=== PATIENT | female | born 1960 | race Caucasian/White ===

== ENCOUNTER 2023-04-16 07:20 | Outpatient (OUT) | payer OTHER, SELFPAY ==
--- NOTE | 2023-04-16 07:24 | MM_ITS ---
Patient: JESSE LIMON Exam Date: 04/16/2023 : 1960 Gender:F Ordering : DR KAR KENDALL Admission #: [id number] Family : DR Armando Zhu D.O. Order #: [id number] CLICK HERE TO VIEW EXAM RADIOLOGY REPORT PROCEDURE: MM TOMOSYNTHESIS SCREENING BI COMPARISON: MG MAMM SCREEN 3D LOIDA CAD, 04/07/2022. MG MAMM SCREEN 3D LOIDA CAD, 04/01/2021. MG MAMM SCREEN LOIDA W CAD, 03/02/2020. MG MAMM SCREEN LOIDA W CAD, 12/16/2015. INDICATIONS: Screening Calculator Name NCI Breast Cancer Risk Assessment Tool 5 Year Breast Cancer Risk 1.50% Lifetime Breast Cancer Risk 6.50% Personal Breast Cancer No Personal Ovarian Cancer No Treatments None Family Cancers Aunt-maternal with breast cancer at age ~70; Cousin-paternal with brain cancer at age ~42; Cousin-paternal with stomach cancer at age ~40. LOCATION: [facility] BREAST COMPOSITION: Heterogeneously dense,which may obscure small masses. FINDINGS: DIAGNOSTIC CATEGORY 1--NEGATIVE. RIGHT BREAST: No significant suspicious finding. No significant change has occurred. LEFT BREAST: No significant suspicious finding. No significant change has occurred. RECOMMENDATIONS: ROUTINE MAMMOGRAM AND CLINICAL EVALUATION IN 12 MONTHS. PLEASE NOTE: A NORMAL MAMMOGRAM DOES NOT EXCLUDE THE POSSIBILITY OF BREAST CANCER. A CLINICALLY SUSPICIOUS PALPABLE LUMP SHOULD BE BIOPSIED. Dictated by: Nasim Medrano M.D. on 04/17/2023 at 12:37 Approved by: aNsim Medrano M.D. on 04/17/2023 at 12:43
== END 2023-04-16 07:21 | disposition home or self-care (01) ==
LOC: MAMMO 07:21
PROVIDERS: PCP Internal Medicine; Visit Provider Obstetrics & Gynecology
DX: Z12.31 Encounter for screening mammogram for malignant neoplasm of breast (principal); Z80.3 Family history of malignant neoplasm of breast; Z80.0 Family history of malignant neoplasm of digestive organs
CPT/HCPCS: 77063; 77067

== ENCOUNTER 2024-09-19 09:07 | Outpatient (OUT) | payer OTHER, SELFPAY ==
--- NOTE | 2024-09-19 09:16 | MM_ITS ---
Patient Name: JESSE LIMON MR#: [id number] : 1960 Exam Date: 09/19/2024 Ordering Doctor: DR KAR KENDALL RADIOLOGY REPORT PROCEDURE: MM TOMOSYNTHESIS SCREENING BI COMPARISON: MG MAMM SCREEN 3D LOIDA CAD, 04/07/2022. MM TOMOSYNTHESIS SCREENING BI, 04/16/2023. INDICATIONS: Screening Calculator Name NCI Breast Cancer Risk Assessment Tool 5 Year Breast Cancer Risk 1.60% Lifetime Breast Cancer Risk 6.30% Personal Breast Cancer No Personal Ovarian Cancer No Treatments None Family Cancers Aunt-maternal with breast cancer at age ~70; Cousin-paternal with brain cancer at age ~42; Cousin-paternal with stomach cancer at age ~40. LOCATION: [facility] BREAST COMPOSITION: The breasts are heterogeneously dense,which may obscure small masses. FINDINGS: DIAGNOSTIC CATEGORY 1--NEGATIVE. NO CHANGE FROM COMPARISON ASSESSMENT. Scattered benign-appearing calcifications are present. RIGHT BREAST: No significant suspicious finding. LEFT BREAST: No significant suspicious finding. RECOMMENDATIONS: ROUTINE MAMMOGRAM AND CLINICAL EVALUATION IN 12 MONTHS. PLEASE NOTE: A NORMAL MAMMOGRAM DOES NOT EXCLUDE THE POSSIBILITY OF BREAST CANCER. A CLINICALLY SUSPICIOUS PALPABLE LUMP SHOULD BE BIOPSIED. Dictated by: Marcos Rodriguez MD on 09/19/2024 at 11:26 Approved by: Marcos Rodriguez MD on 09/19/2024 at 11:27
== END 2024-09-19 09:08 | disposition home or self-care (01) ==
LOC: MAMMO 09:08
PROVIDERS: PCP Internal Medicine; Visit Provider Obstetrics & Gynecology
DX: Z12.31 Encounter for screening mammogram for malignant neoplasm of breast (principal); Z80.3 Family history of malignant neoplasm of breast; Z80.0 Family history of malignant neoplasm of digestive organs; Z80.8 Family history of malignant neoplasm of other organs or systems
CPT/HCPCS: 77063; 77067